=== PATIENT | female | born 1975 | race Caucasian/White ===

== ENCOUNTER → 2017-06-13 | Outpatient (CLI) | payer SELFPAY | END | disposition disaster alternative care site (69) | LOC: GAIR 15:10 | DX: J45.901 Unspecified asthma with (acute) exacerbation (principal); I10 Essential (primary) hypertension; K21.9 Gastro-esophageal reflux disease without esophagitis; R05 Cough; R06.2 Wheezing; R06.02 Shortness of breath; Z79.899 Other long term (current) drug therapy; Z99.11 Dependence on respirator [ventilator] status | CPT/HCPCS: A0431; A0436; J2250; J3010; J7030 ==